=== PATIENT | female | born 1960 | race Caucasian/White ===

== ENCOUNTER 2022-02-21 12:45 | Outpatient (CLI) | payer BC | END 2022-02-21 12:46 | disposition home or self-care (01) | LOC: CSHCT 12:45 | PROVIDERS: ATTEND Neurological Surgery | DX: M54.16 Radiculopathy, lumbar region (principal); M47.816 Spondylosis without myelopathy or radiculopathy, lumbar region | CPT/HCPCS: 72131 ==

== ENCOUNTER 2022-08-04 13:19 | Outpatient (CLI) | payer BC ==
[2022-08-04] MEDS ORDERED: Magnevist 469MG/ML 20 ML VIAL ONE (15:42)
== END 2022-08-04 13:20 | disposition home or self-care (01) ==
LOC: CSHMRI 13:19
PROVIDERS: ATTEND Neurological Surgery
DX: M51.26 Other intervertebral disc displacement, lumbar region (principal); M51.36 Other intervertebral disc degeneration, lumbar region; M48.061 Spinal stenosis, lumbar region without neurogenic claudication; Z98.890 Other specified postprocedural states; M48.07 Spinal stenosis, lumbosacral region
CPT/HCPCS: 72158; 82565

== ENCOUNTER 2024-03-22 10:05 | Outpatient (CLI) | payer BC | END 2024-03-22 10:06 | disposition home or self-care (01) | LOC: CSHCP 10:05 | PROVIDERS: ATTEND Internal Medicine | DX: R05.3 Chronic cough (principal) | CPT/HCPCS: 94060; 94664; 94726; 94729; 94760 ==